=== PATIENT | male | born 1980 | race Caucasian/White ===

== ENCOUNTER 2022-12-11 15:14 | Emergency (ER) | payer MEDICARE, OTHER, SELFPAY ==
[2022-12-11 15:36] VITALS: BP 131/88; PULSE 84; RESP 18; TEMP 37.2; O2SAT 96; BMI 31.4
--- NOTE | 2022-12-11 15:36 | ED_ITS ---
HPI - Skin/Abscess/Foreign Bdy General Chief complaint: Skin/Abscess/Foreign Body Stated complaint: Abscess Time Seen by Provider: 12/11/22 20:20 Related Data Home Medications ?Medication ?Instructions ?Recorded ?Confirmed lamotrigine 150 mg tablet 75 mg PO DAILY 12/14/22 12/17/22 Previous Rx's ?Medication ?Instructions ?Recorded ibuprofen 800 mg tablet 800 mg PO Q8H PRN pain #30 tabs 12/11/22 Allergies Allergy/AdvReac Type Severity Reaction Status Date / Time Penicillins Allergy Severe Anaphylaxis Verified 01/22/23 10:48 [facility] Social History Social History Patient Tobacco Use Status: Former Tobacco user Physical Exam 2 Vital Signs: Vital Signs: Last Vital Signs Temp 98.3 F 12/11/22 21:13 Pulse 60 12/11/22 22:05 Resp 16 12/11/22 22:05 BP 114/73 12/11/22 22:05 Pulse Ox 97 12/11/22 22:05 O2 Del Method Room Air 12/11/22 22:05 BMI result Body Mass Index 31.4 Course Course Course Narrative: This is an RME: Additional HPI, ROS, PE not included below will be deferred to primary provider. 42 year old male presents w/ abcess to R. side of neck currently on atbx ( Bactrim) has been on them for four days. Reports abscess is leaking yellow purulence. Patient reports subjective fevers and chills. He was seen at urgent care in [place]. physical exam with a moderate-sized abscess to the right side of the neck with overlying erythema and warmth. Plan- ID will be needed will order basic labs, blood cultures and lactic Medications Administered Discontinued Medications Generic Name Dose Route Start Last Admin Trade Name Freq PRN Reason Stop Dose Admin Lidocaine HCl 5 ml 12/11/22 20:25 12/11/22 20:30 Lidocaine Hcl 1 % Mpf 5 Ml Vial INFILTRATI 12/11/22 20:26 5 ml ONCE ONE Administration Lidocaine HCl 15 ml 12/11/22 20:44 12/11/22 21:18 Lidocaine Hcl 1 % Mpf 5 Ml Vial INFILTRATI 12/11/22 20:45 15 ml ONCE ONE Administration Medical Decision Making Lab Data 12/11/22 16:39 12/11/22 16:39 Labs: Lab Results 12/11/22 Range/Units 16:39 WBC 6.0 (4.8-10.8) X10*3/uL RBC 5.03 (4.60-5.80) X10*6/uL Hgb 14.8 (14.0-18.0) g/dl Hct 43.8 (42.0-52.0) % MCV 87.1 (80.0-98.0) fL MCH 29.4 (27.0-33.0) pg MCHC 33.8 (31.0-36.0) g/dl RDW 12.5 (11.0-16.0) % Plt Count 327 (160-400) X10*3/uL MPV 9.1 L (9.4-12.4) fL Immature Gran % (Auto) 0.3 (0.0-0.4) % Neut % (Auto) 56.5 (45-73) % Lymph % (Auto) 22.3 (20-40) % [place] % (Auto) 9.8 (2-11) % Eos % (Auto) 10.1 H (0-4) % Baso % (Auto) 1.0 (0-2) % Lymph # (Auto) 1.3 (1.2-4.9) X10*3/uL [place] # (Auto) 0.6 (0.1-1.2) X10*3/uL Eos # (Auto) 0.6 H (0.0-0.4) X10*3/uL Baso # (Auto) 0.1 (0.0-0.2) X10*3/uL Abs Immat Gran (auto) 0.02 (0.00-0.03) X10*3/uL Absolute Neuts (auto) 3.4 (2.0-8.3) x10*3/uL Absolute Nucleated RBC 0.000 (0.0-0.012) X10*3/uL Nucleated RBC % (auto) 0.0 (0.0-0.2) /100WBC Sodium 136 (135-145) mmol/L Potassium 4.5 (3.3-5.1) mmol/L Chloride 103 (96-108) mmol/L Carbon Dioxide 24 (22-29) mmol/L Anion Gap 14 (12-20) BUN 11 (9-16) mg/dL Creatinine 1.28 (0.5-1.4) mg/dL Estim Creat Clear Calc 87.9 Estimated GFR > 60 Random Glucose 81 (60-115) mg/dL Lactic Acid 1.2 (0.5-2.0) mmol/L Calcium 9.4 (8.4-10.2) mg/dL Magnesium 2.2 (1.6-2.6) mg/dL Total Bilirubin 0.7 (0.0-1.0) mg/dL AST 25 (5-37) U/L ALT 29 (0-40) U/L Alkaline Phosphatase 65 (39-117) U/L Total Protein 7.9 (6.5-8.0) g/dL Albumin 4.9 (3.5-5.0) g/dL COVID-19 (CT) Negative (Negative) COVID-19 Clin Com See Note Discharge Plan Discharge Clinical Impression: Abscess of skin or subcutaneous tissue Patient Disposition: Home, Self-Care Instructions: Abscess Incision and Drainage (DC) Prescriptions: New ibuprofen 800 mg tablet 800 mg PO Q8H PRN (Reason: pain) Qty: 30 0RF No Action lamotrigine 150 mg tablet 75 mg PO DAILY Referrals: Nader Rivas MD [Physician] - Interventions: ED Discharge Assessment Last Done: 12/11/22 22:04 Discharge Date/Time: 12/11/22 22:06 Print Language: Bruneian
[2022-12-11 16:45] LABS: MANUAL DIFF FLAG NO
[2022-12-11 16:46] LABS: Basophils Absolute Auto 0.1 X10*3/uL (0.0-0.2); Eosinophils Absolute Auto 0.6 X10*3/uL (0.0-0.4); Eosinophils Percent Auto 10.1 % (0-4); Hematocrit 43.8 % (42.0-52.0); Hemoglobin 14.8 g/dl (14.0-18.0); Imm Gran Abs Auto 0.02 X10*3/uL (0.00-0.03); Imm Gran Pct Auto 0.3 % (0.0-0.4); Lymphocytes Absolute Auto 1.3 X10*3/uL (1.2-4.9); Lymphocytes Percent Auto 22.3 % (20-40); Mean Corpuscular HGB Conc 33.8 g/dl (31.0-36.0); Mean Corpuscular Hemoglobin 29.4 pg (27.0-33.0); Mean Corpuscular Volume 87.1 fL (80.0-98.0); Mean Platelet Volume 9.1 fL (9.4-12.4); Monocytes Absolute Auto 0.6 X10*3/uL (0.1-1.2); Monocytes Percent Auto 9.8 % (2-11); Neutrophils Absolute Auto 3.4 x10*3/uL (2.0-8.3); Neutrophils Percent Auto 56.5 % (45-73); Platelet Count 327 X10*3/uL (160-400); Red Blood Count 5.03 X10*6/uL (4.60-5.80); Red Cell Distribution Width 12.5 % (11.0-16.0)
[2022-12-11 16:55] LABS: Lactic Acid 1.2 mmol/L (0.5-2.0)
[2022-12-11 16:59] LABS: Alanine Aminotransferase 29 U/L (0-40); Albumin Level 4.9 g/dL (3.5-5.0); Alkaline Phosphatase 65 U/L (39-117); Anion Gap 14 (12-20); Aspartate Amino Transferase 25 U/L (5-37); Bilirubin Total 0.7 mg/dL (0.0-1.0); Blood Urea Nitrogen 11 mg/dL (9-16); Calcium 9.4 mg/dL (8.4-10.2); Carbon Dioxide 24 mmol/L (22-29); Chloride 103 mmol/L (96-108); Creatinine Clr Calc Pharmacy 87.9; Estimated Glomerular Filt Rate > 60; Glucose Random 81 mg/dL (60-115); Magnesium 2.2 mg/dL (1.6-2.6); Potassium 4.5 mmol/L (3.3-5.1); Sodium 136 mmol/L (135-145); Total Protein 7.9 g/dL (6.5-8.0)
[2022-12-11 17:08] LABS: COVID-19 Test Negative (Negative); IDNOW Serial# 55D5AD1C
[2022-12-11] MEDS: Lidocaine HCl 1 % MPF 5 ML VIAL INFILTRATI (20:30)
--- NOTE | 2022-12-11 20:30 | PC.NURSE ---
Lidocaine given by provider for cyst on the back of pt neck.
[2022-12-11 20:32] VITALS: BP 126/84; PULSE 60; RESP 16; TEMP 36.8; O2SAT 97
--- NOTE | 2022-12-11 20:45 | ED_ITS ---
HPI - Skin/Abscess/Foreign Bdy General Chief complaint: Skin/Abscess/Foreign Body Stated complaint: Abscess Time Seen by Provider: 12/11/22 20:20 Source: patient History of Present Illness HPI narrative: Patient states he has a history of a lump on right side of his neck that has been there for years. Over the last 2 weeks it has gotten red inflamed is draining pus. He went to an urgent care in [place] and was discharged home on Bactrim. He states the area of redness is smaller but it is still painful and draining pus. Positive fevers at home. No prior history of abscesses. Related Data Previous Rx's Medication Instructions Recorded cephalexin 500 mg capsule 1,000 mg PO BID #40 caps 12/11/22 doxycycline hyclate 100 mg tablet 100 mg PO BID #20 tabs 12/11/22 ibuprofen 800 mg tablet 800 mg PO Q8H PRN pain #30 tabs 12/11/22 Allergies Allergy/AdvReac Type Severity Reaction Status Date / Time Penicillins Allergy Severe Anaphylaxis Verified 12/11/22 15:39 Review of Systems Constitutional: Comments: Fevers and chills. None now Cardiovascular: Comments: No chest pain Respiratory: Comments: No cough Gastrointestinal: Comments: No abdominal pain Integumentary/Breasts: Comments: Abscess and cellulitis as noted PMFSH Social History Social History Advance Directives: No Advance Directives Information Provided: No Physical Exam Vital Signs: Vital Signs: Last Vital Signs Temp 98.2 F 12/11/22 20:32 Pulse 60 12/11/22 20:32 Resp 16 12/11/22 20:32 BP 126/84 12/11/22 20:32 Pulse Ox 97 12/11/22 20:32 O2 Del Method Room Air 12/11/22 20:32 BMI result Body Mass Index 31.4 Const: Other: Awake and alert. No acute distress HEENT: Other: Right posterolateral neck with 2 x 2 cm abscess with small amounts of drainage. Surrounding induration and cellulitis Resp: Other: No respiratory distress Skin: Other: See HEENT exam. Otherwise no skin abnormalities Neuro: Other: Nonfocal Medications Administered Discontinued Medications Generic Name Dose Route Start Last Admin Trade Name Freq PRN Reason Stop Dose Admin Lidocaine HCl 5 ml 12/11/22 20:25 12/11/22 20:30 Lidocaine Hcl 1 % Mpf 5 Ml Vial INFILTRATI 12/11/22 20:26 5 ml ONCE ONE Administration Medical Decision Making Medical Decision Making MDM Narrative: Abscess failing outpatient antibiotics. Discussed incision and drainage and patient agrees. 21:07. Patient tolerated procedure well. Anesthetized around the area to see if there was sac that could be removed. Unable to find removable cyst. Will therefore discharged home on double antibiotic coverage flex and doxycycline to stop the Bactrim and follow-up with surgery. Ibuprofen for discomfort Lab Data 12/11/22 16:39 12/11/22 16:39 Labs: Lab Results 12/11/22 12/11/22 12/11/22 Range/Units 16:39 16:39 16:39 WBC 6.0 (4.8-10.8) X10*3/uL RBC 5.03 (4.60-5.80) X10*6/uL Hgb 14.8 (14.0-18.0) g/dl Hct 43.8 (42.0-52.0) % MCV 87.1 (80.0-98.0) fL MCH 29.4 (27.0-33.0) pg MCHC 33.8 (31.0-36.0) g/dl RDW 12.5 (11.0-16.0) % Plt Count 327 (160-400) X10*3/uL MPV 9.1 L (9.4-12.4) fL Immature Gran % (Auto) 0.3 (0.0-0.4) % Neut % (Auto) 56.5 (45-73) % Lymph % (Auto) 22.3 (20-40) % [place] % (Auto) 9.8 (2-11) % Eos % (Auto) 10.1 H (0-4) % Baso % (Auto) 1.0 (0-2) % Lymph # (Auto) 1.3 (1.2-4.9) X10*3/uL [place] # (Auto) 0.6 (0.1-1.2) X10*3/uL Eos # (Auto) 0.6 H (0.0-0.4) X10*3/uL Baso # (Auto) 0.1 (0.0-0.2) X10*3/uL Abs Immat Gran (auto) 0.02 (0.00-0.03) X10*3/uL Absolute Neuts (auto) 3.4 (2.0-8.3) x10*3/uL Absolute Nucleated RBC 0.000 (0.0-0.012) X10*3/uL Nucleated RBC % (auto) 0.0 (0.0-0.2) /100WBC Sodium 136 (135-145) mmol/L Potassium 4.5 (3.3-5.1) mmol/L Chloride 103 (96-108) mmol/L Carbon Dioxide 24 (22-29) mmol/L Anion Gap 14 (12-20) BUN 11 (9-16) mg/dL Creatinine 1.28 (0.5-1.4) mg/dL Estim Creat Clear Calc 87.9 Estimated GFR > 60 Random Glucose 81 (60-115) mg/dL Lactic Acid 1.2 (0.5-2.0) mmol/L Calcium 9.4 (8.4-10.2) mg/dL Magnesium 2.2 (1.6-2.6) mg/dL Total Bilirubin 0.7 (0.0-1.0) mg/dL AST 25 (5-37) U/L ALT 29 (0-40) U/L Alkaline Phosphatase 65 (39-117) U/L Total Protein 7.9 (6.5-8.0) g/dL Albumin 4.9 (3.5-5.0) g/dL COVID-19 (CT) (Negative) COVID-19 Clin Com 12/11/22 Range/Units 16:39 WBC (4.8-10.8) X10*3/uL RBC (4.60-5.80) X10*6/uL Hgb (14.0-18.0) g/dl Hct (42.0-52.0) % MCV (80.0-98.0) fL MCH (27.0-33.0) pg MCHC (31.0-36.0) g/dl RDW (11.0-16.0) % Plt Count (160-400) X10*3/uL MPV (9.4-12.4) fL Immature Gran % (Auto) (0.0-0.4) % Neut % (Auto) (45-73) % Lymph % (Auto) (20-40) % [place] % (Auto) (2-11) % Eos % (Auto) (0-4) % Baso % (Auto) (0-2) % Lymph # (Auto) (1.2-4.9) X10*3/uL [place] # (Auto) (0.1-1.2) X10*3/uL Eos # (Auto) (0.0-0.4) X10*3/uL Baso # (Auto) (0.0-0.2) X10*3/uL Abs Immat Gran (auto) (0.00-0.03) X10*3/uL Absolute Neuts (auto) (2.0-8.3) x10*3/uL Absolute Nucleated RBC (0.0-0.012) X10*3/uL Nucleated RBC % (auto) (0.0-0.2) /100WBC Sodium (135-145) mmol/L Potassium (3.3-5.1) mmol/L Chloride (96-108) mmol/L Carbon Dioxide (22-29) mmol/L Anion Gap (12-20) BUN (9-16) mg/dL Creatinine (0.5-1.4) mg/dL Estim Creat Clear Calc Estimated GFR Random Glucose (60-115) mg/dL Lactic Acid (0.5-2.0) mmol/L Calcium (8.4-10.2) mg/dL Magnesium (1.6-2.6) mg/dL Total Bilirubin (0.0-1.0) mg/dL AST (5-37) U/L ALT (0-40) U/L Alkaline Phosphatase (39-117) U/L Total Protein (6.5-8.0) g/dL Albumin (3.5-5.0) g/dL COVID-19 (CT) Negative (Negative) COVID-19 Clin Com See Note Procedures Abscess I/D Site: neck Side (if applicable): right Local Anesthetic: lidocaine 1% Amount of anesthesia used (mL): 5 Technique: incised with blade Sent for culture/gram staining?: No Irrigation: No Packing used?: none Complications: other (Patient tolerated procedure well although with some discomfort) Discharge Plan Discharge Clinical Impression: Abscess of skin or subcutaneous tissue Patient Disposition: Home, Self-Care Instructions: Abscess Incision and Drainage (DC) Prescriptions: New cephalexin 500 mg capsule 1,000 mg PO BID Qty: 40 0RF doxycycline hyclate 100 mg tablet 100 mg PO BID Qty: 20 0RF ibuprofen 800 mg tablet 800 mg PO Q8H PRN (Reason: pain) Qty: 30 0RF Referrals: Nader Rivas MD [Physician] -
--- NOTE | 2022-12-11 21:12 | PC.NURSE ---
pt neck abscess attempted to obtain the sac and was not able to. pt dione well no complications. pain 5/10 at this time to incision site right upper back base of neck.
[2022-12-11 21:13] VITALS: BP 134/86; PULSE 55; RESP 18; TEMP 36.8; O2SAT 99
[2022-12-11] MEDS: Lidocaine HCl 1 % MPF 5 ML VIAL 15 ML INFILTRATI (21:18)
[2022-12-11 22:05] VITALS: BP 114/73; PULSE 60; RESP 16; O2SAT 97
== END 2022-12-11 22:06 | disposition home or self-care (01) ==
PROVIDERS: Physician Assistant; Emergency Provider Emergency Medicine
DX: L02.11 Cutaneous abscess of neck (principal); Z20.822 Contact with and (suspected) exposure to COVID-19
CPT/HCPCS: 10060; 80053; 83605; 83735; 85025; 87040; 87635; 99284

== ENCOUNTER → 2022-12-14 11:13 | Outpatient (BNVA) | payer MEDICARE, OTHER, SELFPAY | PROVIDERS: PCP Internal Medicine; Visit Provider Surgery | DX: L72.3 Sebaceous cyst (principal); L08.9 Local infection of the skin and subcutaneous tissue, unspecified | CPT/HCPCS: 99202 ==

== ENCOUNTER → 2022-12-17 08:50 | Outpatient (BNVA) | payer MEDICARE, OTHER, SELFPAY | PROVIDERS: PCP Internal Medicine; Visit Provider Surgery | DX: Z48.00 Encounter for change or removal of nonsurgical wound dressing (principal) | CPT/HCPCS: 99211 ==

== ENCOUNTER → 2022-12-21 10:38 | Outpatient (BNVA) | payer OTHER, SELFPAY | PROVIDERS: PCP Internal Medicine; Visit Provider Surgery ==

== ENCOUNTER 2023-01-11 10:15 | Outpatient (REF) | payer OTHER, SELFPAY | END 2023-01-11 10:16 | disposition home or self-care (01) | LOC: HO.LNP 10:15 | PROVIDERS: PCP Internal Medicine; Visit Provider Surgery | DX: L72.3 Sebaceous cyst (principal) | CPT/HCPCS: 11424; 88304; 99212 ==

== ENCOUNTER → 2023-01-22 10:31 | Outpatient (BNVA) | payer OTHER, SELFPAY | PROVIDERS: PCP Internal Medicine; Referring Provider Internal Medicine; Visit Provider Surgery | DX: L72.3 Sebaceous cyst (principal) | CPT/HCPCS: 99212 ==